=== PATIENT | female | born 1970 | race African-American/Black ===

== ENCOUNTER 2016-07-17 08:10 | Emergency (ER) | payer OTHER ==
[2016-07-17 07:52] LABS: BASOPHIL 0.2 % (0-2); EOSINOPHIL 1.5 % (0-5); HCT 39.5 % (37.0-47.0); HGB 12.8 g/dl (12.5-16.0); LYMPHOCYTE 24.8 % (15-48); MCH 27.2 pg (25.0-31.0); MCHC 32.4 g/dL (32.0-36.0); MCV 83.9 fL (78.0-100.0); MONOCYTE 3.9 % (0-12); MPV 10.2 fL (6.0-9.5); NEUTROPHIL 69.6 % (41-80); PLT 258 K/uL (150-400); RBC 4.71 M/uL (4.20-5.40); RDW 16.4 % (11.5-14.0); WBC 9.9 K/uL (4.0-10.5)
[2016-07-17 07:58] LABS: INR 0.96 (0.9-1.2); PROTHROMBIN TIME 12.4 SECONDS (11.7-14.0); PTT 38.6 SECONDS (23.2-31.4)
[2016-07-17 08:03] LABS: ALBUMIN 4.1 g/dL (3.5-5.0); BILIRUBIN - TOTAL 0.3 mg/dL (0.1-1.0); GLOBULIN (CALCULATION) 3.1 g/dL (2.2-4.2); POTASSIUM 3.6 mmol/L (3.5-5.1); TOTAL PROTEIN 7.2 g/dL (6.4-8.3)
[~2016-07-17 08:10] MED LIST: ASPIRIN CHEWABL81 MG PO; COUMADIN10 MG PO; FLEXERIL5 MG PO; IMDUR 30MG TABL30 MG PO; LOPRESSOR50 MG PO; NORCO 5-325 TA1 EACH PO; PEPCID40 MG PO; PHENERGAN25 M1 PO; REQUIP1 MG PO; RESTORIL30 MG PO; SIMVASTATIN40 MG PO
[2016-08-08] MEDS ORDERED: COUMADIN7.5 MG PO (11:46)
[2016-08-08] MEDS ORDERED: HYDROCODON-ACE1 EAC6 PO (11:47)
[2016-08-08] MEDS ORDERED: NEURONTIN300 MG PO (11:47)
[2016-08-08] MEDS ORDERED: TRAMADOL HCL50 MG PO (11:47)
== END 2016-07-17 10:52 | disposition home or self-care (01) ==
LOC: FER 08:10
PROVIDERS: Emergency Medicine
DX: R07.9 Chest pain, unspecified (principal); R06.02 Shortness of breath; R11.2 Nausea with vomiting, unspecified; I25.810 Atherosclerosis of coronary artery bypass graft(s) without angina pectoris; I11.9 Hypertensive heart disease without heart failure; E78.5 Hyperlipidemia, unspecified; Z82.49 Family history of ischemic heart disease and other diseases of the circulatory system; Z95.1 Presence of aortocoronary bypass graft
CPT/HCPCS: 36415; 71010; 80053; 83690; 84484; 85025; 85610; 85730; 93005; J2270; J2405

== ENCOUNTER → 2016-10-02 | Day surgery (SDC) | payer OTHER ==
[~2016-10-02] MED LIST changes: +COUMADIN7.5 MG PO; +HYDROCODON-ACE1 EAC6 PO; +NEURONTIN300 MG PO; +TRAMADOL HCL50 MG PO
[2016-10-02 07:31] LABS: INR 1.16 (0.9-1.2); PROTHROMBIN TIME 14.4 SECONDS (11.7-14.0); PTT 38.5 SECONDS (23.2-31.4)
[2016-10-02 07:36] LABS: CREATININE 0.9 mg/dL (0.5-1.0); POTASSIUM 4.1 mmol/L (3.5-5.1)
== END | disposition home or self-care (01) ==
LOC: FAS 06:51
PROVIDERS: Anesthesiology; Surgery
DX: K21.0 Gastro-esophageal reflux disease with esophagitis (principal); K44.9 Diaphragmatic hernia without obstruction or gangrene; I10 Essential (primary) hypertension; E78.5 Hyperlipidemia, unspecified; D64.9 Anemia, unspecified; I25.10 Atherosclerotic heart disease of native coronary artery without angina pectoris; Z86.73 Personal history of transient ischemic attack (TIA), and cerebral infarction without residual deficits; Z88.8 Allergy status to other drugs, medicaments and biological substances; Z79.01 Long term (current) use of anticoagulants; Z79.899 Other long term (current) drug therapy; Z95.1 Presence of aortocoronary bypass graft; Z98.51 Tubal ligation status; Z98.890 Other specified postprocedural states; Z87.891 Personal history of nicotine dependence
CPT/HCPCS: 36415; 80048; 85610; 85730; J2704

== ENCOUNTER 2020-05-22 13:36 | Inpatient (IN) | payer OTHER ==
[~2020-05-22 13:36] MED LIST changes: +ANTIVERT25 MG PO; +ATORVASTATIN CA80 MG PO; +ELAVIL25 MG PO; +FLOMAX0.4 MG PO; +HM COMPLETE WO1 EACH PO; +LISINOPRIL 20MG20 MG PO; +RANITIDINE HCL150 MG PO; +XARELTO10 MG PO; +ZOFRAN8 MG PO
[2020-05-22 15:27] LABS: BASOPHIL 0.2 % (0-2); EOSINOPHIL 0 % (0-5); HCT 41.4 % (37.0-47.0); HGB 12.9 g/dl (12.5-16.0); MCH 26.9 pg (25.0-31.0); MCHC 31.2 g/dL (32.0-36.0); MCV 86.3 fL (78.0-100.0); MONOCYTE 3.6 % (0-12); MPV 10.1 fL (6.0-9.5); NRBC 0; PLT 168 K/uL (150-400); WBC 5.1 K/uL (4.0-10.5)
[2020-05-22 16:13] LABS: ALBUMIN 3.6 g/dL (3.4-5.0); BILIRUBIN - TOTAL 0.6 mg/dL (0.2-1.0); BUN/CREAT RATIO (CALC) 13.1 RATIO; CREATININE 0.99 mg/dL (0.51-0.95); GLOBULIN (CALCULATION) 3.6 g/dL; POTASSIUM 3.4 mmol/L (3.5-5.1); TOTAL PROTEIN 7.2 g/dL (6.4-8.2)
[2020-05-23 05:26] LABS: HCT 39.3 % (37.0-47.0); HGB 12.3 g/dl (12.5-16.0); MCH 27.2 pg (25.0-31.0); MCHC 31.3 g/dL (32.0-36.0); MCV 86.8 fL (78.0-100.0); MPV 10.5 fL (6.0-9.5); RBC 4.53 M/uL (4.20-5.40); RDW 16.2 % (11.5-14.0)
[2020-05-23 05:33] LABS: WBC 2.2 K/uL (4.0-10.5)
[2020-05-23 05:43] LABS: BUN/CREAT RATIO (CALC) 15.9 RATIO; CREATININE 0.82 mg/dL (0.51-0.95); POTASSIUM 4.1 mmol/L (3.5-5.1)
--- NOTE | 2020-05-23 09:54 | NUR ---
PT LIVES WITH GRANDDAUGHTER AND GRANDCHILD AND IS INDEPENDENT PLEASE ADVISE OF ANY DISCHARGE NEEDS
--- NOTE | 2020-05-23 14:28 | NUR ---
05/23/20 Ms. Tipton was independent in the home and community prior to admission, Her daughter and grandson live in the home. Ms. Tipton uses [employer] for transportation. - Discharge is anticipated for 05/24/20. HH services are not needs per Therapy. A referral was made to [facility] for home 02 at 2 L. Ms. Tipton was advised to call [facility] for delivery of the concentrator when she arrives home. Report given to MS NICO Giron.
[2020-05-24 04:06] LABS: MCH 27.5 pg (25.0-31.0); MCHC 30.8 g/dL (32.0-36.0); MCV 89.4 fL (78.0-100.0); MPV 11.6 fL (6.0-9.5); RBC 4.36 M/uL (4.20-5.40); RDW 16.3 % (11.5-14.0)
[2020-05-24 04:25] LABS: BILIRUBIN - TOTAL 0.3 mg/dL (0.2-1.0); BUN/CREAT RATIO (CALC) 21.7 RATIO; CREATININE 0.92 mg/dL (0.51-0.95); GLOBULIN (CALCULATION) 3.6 g/dL; POTASSIUM 4.3 mmol/L (3.5-5.1); TOTAL PROTEIN 6.6 g/dL (6.4-8.2)
--- NOTE | 2020-05-24 10:18 | NUR ---
05/24/20 Portable 02 tank has been delivered in anticipation of discharge for today. Report given to MS NICO Lundberg.
[2020-05-24] MEDS ORDERED: VITAMIN D325 MC1 PO (13:43)
[2020-05-24] MEDS ORDERED: ZINC SULFATE220 M1 PO (13:43)
[2020-05-24] MEDS ORDERED: ASCORBIC ACID500 MG PO (13:43)
[2020-05-24] MEDS ORDERED: DECADRON6 MG PO (13:43)
== END 2020-05-24 14:55 | disposition home or self-care (01) | DRG 177 ==
LOC: FER 13:36 → FMS 16:10
PROVIDERS: Nurse Practitioner Family; ADMIT Hospitalist
PROC: 8E0ZXY6 Isolation (ICD-10-PCS; principal; 2020-05-22)
PROC: 3E0333Z Introduction of Anti-inflammatory into Peripheral Vein, Percutaneous Approach (ICD-10-PCS; 2020-05-23)
DX: U07.1 COVID-19 (principal); J12.82 Pneumonia due to coronavirus disease 2019; J96.01 Acute respiratory failure with hypoxia; I10 Essential (primary) hypertension; E78.5 Hyperlipidemia, unspecified; I25.10 Atherosclerotic heart disease of native coronary artery without angina pectoris; Z95.1 Presence of aortocoronary bypass graft; Z86.73 Personal history of transient ischemic attack (TIA), and cerebral infarction without residual deficits; G25.81 Restless legs syndrome; Z90.49 Acquired absence of other specified parts of digestive tract; Z87.891 Personal history of nicotine dependence
CPT/HCPCS: 36415; 36600; 71045; 80048; 80053; 82803; 84484; 85025; 85379; 93005; 94010; 94760; 94762; 97162; 97166; 97530-GP; 97535; J1100; J1650; J7030

== ENCOUNTER 2020-05-25 11:53 | Emergency (ER) | payer OTHER ==
[~2020-05-25 11:53] MED LIST changes: +ASCORBIC ACID500 MG PO; +DECADRON6 MG PO; +VITAMIN D325 MC1 PO; +ZINC SULFATE220 M1 PO
[2020-05-25 12:48] LABS: BASOPHIL 0.1 % (0-2); EOSINOPHIL 0 % (0-5); HGB 12.1 g/dl (12.5-16.0); LYMPHOCYTE 12.6 % (15-48); MCH 27.3 pg (25.0-31.0); MCHC 31.8 g/dL (32.0-36.0); MCV 85.6 fL (78.0-100.0); MPV 11.4 fL (6.0-9.5); NEUTROPHIL 83.9 % (41-80); NRBC 0; PLT 193 K/uL (150-400); RBC 4.44 M/uL (4.20-5.40); RDW 15.9 % (11.5-14.0)
[2020-05-25 13:09] LABS: BUN/CREAT RATIO (CALC) 16.8 RATIO; CREATININE 0.95 mg/dL (0.51-0.95); POTASSIUM 3.2 mmol/L (3.5-5.1)
== END 2020-05-25 14:10 | disposition home or self-care (01) ==
LOC: FER 11:53
PROVIDERS: Emergency Medicine
DX: U07.1 COVID-19 (principal); R42 Dizziness and giddiness; I10 Essential (primary) hypertension; Z95.1 Presence of aortocoronary bypass graft
CPT/HCPCS: 36415; 36600; 71045; 80048; 82803; 85025

== ENCOUNTER 2020-10-24 18:36 | Emergency (ER) | payer OTHER ==
[2020-10-24 21:33] LABS: BASOPHIL 0.5 % (0-2); HCT 37.5 % (37.0-47.0); HGB 12.1 g/dl (12.5-16.0); LYMPHOCYTE 33.5 % (15-48); MCH 27.7 pg (25.0-31.0); MCHC 32.3 g/dL (32.0-36.0); MCV 85.8 fL (78.0-100.0); MONOCYTE 2.8 % (0-12); MPV 10.3 fL (6.0-9.5); NRBC 0; PLT 259 K/uL (150-400); RBC 4.37 M/uL (4.20-5.40); WBC 10.3 K/uL (4.0-10.5)
[2020-10-24 22:07] LABS: BUN/CREAT RATIO (CALC) 13.2 RATIO; C-REACTIVE PROTEIN 2.1 mg/dL (<=0.90); CREATININE 0.91 mg/dL (0.51-0.95); POTASSIUM 3.2 mmol/L (3.5-5.1)
[2020-10-25] MEDS ORDERED: CEPHALEXIN500 M1 PO (02:49)
== END 2020-10-25 06:10 | disposition home or self-care (01) ==
LOC: FER 18:36
PROVIDERS: Emergency Medicine Emergency Medical Services
DX: L03.116 Cellulitis of left lower limb (principal); R07.89 Other chest pain; I10 Essential (primary) hypertension; G89.29 Other chronic pain; Z79.891 Long term (current) use of opiate analgesic; Z95.1 Presence of aortocoronary bypass graft; Z86.73 Personal history of transient ischemic attack (TIA), and cerebral infarction without residual deficits
CPT/HCPCS: 36415; 71275; 80048; 84484; 85025; 85379; 86140; 93005; 93971; J0696; J1170; J1885; J2270; J2405; Q9967

== ENCOUNTER 2021-08-20 12:13 | Emergency (ER) | payer OTHER ==
[~2021-08-20 12:13] MED LIST changes: +CEPHALEXIN500 M1 PO; +NITROQUIK SL0.4 MG SL
== END 2021-08-20 15:07 | disposition home or self-care (01) ==
LOC: FER 12:13
DX: S09.90XA Unspecified injury of head, initial encounter (principal); M54.6 Pain in thoracic spine; I10 Essential (primary) hypertension; Z86.73 Personal history of transient ischemic attack (TIA), and cerebral infarction without residual deficits; W07.XXXA Fall from chair, initial encounter; Y92.89 Other specified places as the place of occurrence of the external cause
CPT/HCPCS: 71046; 72050; 72072; 93005